=== PATIENT | male | born 1970 | race Caucasian/White ===

== ENCOUNTER 2017-11-27 16:21 | Emergency (ER) | payer OTHER, SELFPAY ==
[2017-11-27 16:46] VITALS: BP 146/102; PULSE 98; RESP 20; TEMP 37.2; O2SAT 96; BMI 45.6
--- NOTE | 2017-11-27 18:46 | ED.UPPEXIN ---
HPI - Extremity Injury (Upper) <NILO Escamilla - Last Filed: 11/27/17 21:20> General Chief Complaint: Extremity Injury, Upper Stated Complaint: WORK ACCIDENT/ABBRASION LT ELBOW SWELLING Time Seen by Provider: 11/27/17 18:35 Source: patient Mode of arrival: ambulatory Limitations: no limitations History of Present Illness HPI narrative: Patient presents after a ground level fall during work accident on to right elbow. Patient complains of some pain on movement of her right elbow, swelling at tip of right elbow and an abrasion on his right elbow. Patient also complains of lower back pain of though he states he has chronic lower back pain is not sure if the pack pain he is experiencing is his chronic issue or from the fall. Denies any numbness, tingling, weakness or incontinence. He does not want me to address his back pain, but states he ?wants it noted.? Related Data Home Medications Medication Instructions Recorded Confirmed lisinopril 20 mg PO QDAY #0 06/18/16 Previous Rx's Medication Instructions Recorded ondansetron HCl [Zofran] 4 mg PO Q4HP PRN 10 Days #0 tab 06/18/16 Allergies Allergy/AdvReac Type Severity Reaction Status Date / Time morphine Allergy Verified 11/27/17 16:46 Review of Systems <NILO Escamilla - Last Filed: 11/27/17 21:20> Review of Systems GENERAL: Denies chills, fatigue, malaise, fever, sweats. HEENT: Denies sinus pain, ear pain, sore throat, difficulty swallowing, dizziness. RESPIRATORY: Denies dyspnea, cough, wheezing, hemoptysis, sputum. CARDIOVASCULAR: Denies chest pain, palpitations, orthopnea, edema, GASTROINTESTINAL: Denies nausea, vomiting, abdominal pain, diarrhea, constipation, melena. : Denies dysuria, frequency, incontinence, hematuria, urinary retention. MUSCULOSKELETAL: See HPI SKIN: See HPI NEUROLOGIC: Denies weakness, headache, numbness, change in speech, confusion, seizures, incoordination. PSYCHIATRIC: No concerning psychosocial issues. 12 point review of systems is negative except for those stated above Constitutional Denies chills, Denies fever(s), Denies lethargy and Denies weakness Neurologic Denies weakness Exam <NILO Escamilla - Last Filed: 11/27/17 21:20> Narrative Exam Narrative: GENERAL: This is a well-nourished patient in no acute distress neck in the hallway. HEAD: Atraumatic. Normocephalic. No temporal or scalp tenderness. EYES: Pupils equal round and reactive. Extraocular motions intact. No scleral icterus. No injection or drainage. ENT: Nose without bleeding, purulent drainage or septal hematoma. Throat without erythema, tonsillar hypertrophy or exudate. Uvula midline. Airway patent. NECK: Trachea midline. No JVD or lymphadenopathy. Supple, nontender, no meningeal signs. CARDIOVASCULAR: Regular rate and rhythm without murmurs, gallops, or rubs. RESPIRATORY: Clear to auscultation. Breath sounds equal bilaterally. No wheezes, rales, or rhonchi. GASTROINTESTINAL: Abdomen soft, non-tender, nondistended. No hepato-splenomegaly, or palpable masses. No guarding. EXTREMITIES: Pain on palpation of her right elbow. Patient has full range of motion. Able to flex, extend pronate and supinate without problems. Positive radial pulse right hand. No pain to palpation right shoulder upper arm forearm or hand. No pain to palpation right snuffbox. BACK: Nontender without deformity or crepitance. No flank tenderness. No C-spine or spinal tenderness to palpation. Stable gait. NEURO: AOx3. SKIN: 2 cm abrasion noted at right elbow. No drainage or spreading redness. 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 An x-ray was taken given the mechanism of injury. Patient was given Tylenol for pain. His wound was dressed. Patient's worker's compensation form was filled out. I checked on the patient several times at his stay. Patient had no questions or concerns upon discharge. Orders Ordered: Discontinued Medications Acetaminophen (Tylenol) 975 mg PO NOW ONE Stop: 11/27/17 18:47 Last Admin: 11/27/17 19:24 Dose: 975 mg Vital Signs - 8 hr 11/27/17 16:46 11/27/17 19:15 11/27/17 19:37 Temperature 98.9 F Pulse Rate 98 H 68 Pulse Rate [Left Radial] 70 Respiratory Rate 20 21 Blood Pressure 146/102 H Blood Pressure [Left Arm] 142/95 H Pulse Oximetry 96 98 <Keith Roberts DO - Last Filed: 11/29/17 02:16> Orders Ordered: Discontinued Medications Acetaminophen (Tylenol) 975 mg PO NOW ONE Stop: 11/27/17 18:47 Last Admin: 11/27/17 19:24 Dose: 975 mg Vital Signs - 8 hr 11/27/17 16:46 11/27/17 19:15 11/27/17 19:37 Temperature 98.9 F Pulse Rate 98 H 68 Pulse Rate [Left Radial] 70 Respiratory Rate 20 21 Blood Pressure 146/102 H Blood Pressure [Left Arm] 142/95 H Pulse Oximetry 96 98 MDM - Extremity Injury (Upper) <NILO Escamilla - Last Filed: 11/27/17 21:20> Imaging Data right elbow xray: Radiologist's impression: View Report History [address] [address] XRay Report Signed Patient: Sanjay Soler MR#: [id number] : 1970 Acct:[id number] Age/Sex: 47 / M Date of Service: 11/27/17 Loc: ED Accession Number: [id number] Procedure: XR elbow RT min 3V Ordering Provider: Lenora Tolbert PROCEDURE: XR ELBOW RT MIN 3V INDICATIONS: pain, fall onto right elbow TECHNIQUE: 3 views of the elbow were acquired. COMPARISON: None. FINDINGS: Bones: No fractures or dislocations. No suspicious bony lesions. Soft tissues: No elbow joint effusion. No suspicious soft tissue calcifications. IMPRESSION: No acute fracture. No osseous lesion. If clinical suspicion and/or symptoms persist, further assessment with repeat plainfilms, or advanced imaging (e.g., CT, MRI, or bone scan) may be helpful for further assessment. Dictated by: Rachana Mobley M.D. on 11/27/2017 at 19:21 Approved by: Rachana Mobley M.D. on 11/27/2017 at 19:21 [facility] Narrative Medical decision making narrative: The patient's x-ray showed no acute fracture. He had good mobility and a low level of pain. History with Tylenol in the emergency department. His abrasion was dressed. Given the good range of motion, lack of significant pain and negative x-ray, he was cleared for work. I instructed him to watch for signs and symptoms of infection given his abrasion and follow up his primary care physician if worsening or no improvement. Patient no questions or concerns upon discharge. His worker's compensation forms were filled out. Discharge Plan Departure Patient Disposition: Home, Self-Care Clinical Impression: Abrasion of elbow, right, Pain and swelling of right elbow Discharge Date/Time: 11/27/17 19:55 Interventions: ED Discharge Assessment Last Done: 11/27/17 19:55 Instructions: How To Perform RICE (Rest, Ice, Compress, Elevate), DI for Abrasion, DI for Elbow Pain Activity Restrictions/Additional Instructions: Your x-ray showed no acute fracture. I suggest rest, ice, ibuprofen. Monitor ear abrasion for signs and symptoms of infection including pus, drainage, spreading redness. Follow up with primary care for new or worsening symptoms. Prescriptions: No Action lisinopril 20 MG tablet 20 mg PO QDAY Qty: 0 RF: 0 ondansetron HCl [Zofran] 4 MG tablet 4 mg PO Q4HP PRN10 Days Qty: 0 RF: 0 Referrals: Provider,Conversion [Non-Staff] - <Keith Roberts DO - Last Filed: 11/29/17 02:16> Cosign ED Attending Milagros Attestation: I was immediately available in the department for consultation. Documentation has been reviewed. I agree with assessment and plan.
[2017-11-27 19:15] VITALS: BP 142/95; PULSE 68; RESP 21; O2SAT 98
[2017-11-27] MEDS: ACETAMINOPHEN 325 MG TABLET 975 MG PO (19:24)
[2017-11-27 19:37] VITALS: PULSE 70
== END 2017-11-27 19:55 | disposition home or self-care (01) ==
PROVIDERS: Emergency Provider Nurse Practitioner Family
DX: S50.311A Abrasion of right elbow, initial encounter (principal); Y99.0 Civilian activity done for income or pay
CPT/HCPCS: 73080; 99283

== ENCOUNTER 2023-02-14 09:57 | Emergency (ER) | payer BC, SELFPAY ==
[2023-02-14 09:59] VITALS: BP 165/112; PULSE 78; RESP 16; TEMP 37.6; O2SAT 95; BMI 41.5
[2023-02-14 10:35] LABS: Strep Grp A by PCR Rapid NEGATIVE (Negative)
[2023-02-14 14:20] VITALS: BP 165/101; PULSE 81; O2SAT 99
--- NOTE | 2023-02-14 14:29 | ED.URI ---
HPI - URI/Sore Throat General Chief Complaint: Upper Respiratory Symptoms Stated Complaint: sore throat Time Seen by Provider: 02/14/23 14:13 Source: patient Mode of arrival: Ambulatory History of Present Illness HPI Narrative: 52-year-old male with history of hypertension, [id number] diabetes presents for sore throat, nasal congestion, swollen uvula. Patient has sleep apnea and the swollen uvula makes it difficult to sleep at night. Related Data Home Medications Medication Instructions Recorded Confirmed lisinopril 20 mg tablet 20 mg PO QDAY ##0 06/18/16 Previous Rx's Medication Instructions Recorded ondansetron HCl 4 mg tablet 4 mg PO Q4HP PRN 10 days #0 tabs 06/18/16 (Zofran) Allergies Allergy/AdvReac Type Severity Reaction Status Date / Time cyclobenzaprine Allergy Verified 02/14/23 09:59 [From Flexeril] morphine Allergy Verified 02/14/23 09:59 Review of Systems Review of Systems Narrative: CONSTITUTIONAL- Denies: fever, chills, fatigue HEENT-reports: Nasal congestion, sore throat Denies: nosebleed, vision changes RESPIRATORY- Denies: shortness of breath, cough, wheezing CARDIAC- Denies: chest pain, edema, orthopnea GI- Denies: abdominal pain, nausea, vomiting, constipation, diarrhea SKIN- Denies: rash, itching, burn, swelling NEUROLOGICAL- Denies: headache, numbness, weakness, dizziness Patient History Social History Smoking Status: Never smoker Smoking Status: Never smoker alcohol intake frequency: holidays/special occasions only Substance Use Type: does not use Exam Initial Vital Signs Initial Vital Signs: Vital Signs Temperature 99.6 F 02/14/23 09:59 Pulse Rate 78 02/14/23 09:59 Respiratory Rate 16 02/14/23 09:59 Blood Pressure 165/112 H 02/14/23 09:59 Pulse Oximetry 95 02/14/23 09:59 Oxygen Delivery Method Room Air 02/14/23 09:59 Const: Awake, alert, no acute distress, nontoxic appearing Eyes: PERRL, EOMI, conjunctiva normal ENT: Airway patent, mucous membranes moist, mild pharyngeal erythema, uvular edema, no tonsillar edema, no exudates Cardiac: regular rate, regular rhythm RESP: unlabored, clear bilaterally, no wheezing GI: Atraumatic, soft, nontender, nondistended, no rebound, no guarding MSK: Atraumatic, full range of motion, pulses equal Skin: Warm, Dry, intact, no rashes Neuro: AO x3, CN II-XII grossly intact, moves all extremities Psych: affect normal, mood normal, not suicidal, not homicidal Course Course Course Narrative: Sore throat with uvular swelling. Strep swab is negative. Patient's airway is intact. Given dose of steroids, counseled on the potential effects of steroids on glucose. Recommended Tylenol and Motrin as needed for pain as well as saltwater gargles. Orders Ordered: Discontinued Medications Dexamethasone (Dexamethasone 10 Mg/Ml Vial) 10 mg PO NOW ONE Stop: 02/14/23 14:31 Last Admin: 02/14/23 14:46 Dose: 10 mg Documented By: RB Dexamethasone (Dexamethasone 10 Mg/Ml Vial) 10 mg PO NOW ONE Stop: 02/14/23 14:41 Last Admin: 02/14/23 14:46 Dose: 10 mg Documented By: RB Lidocaine HCl (Lidocaine Viscous 2% 15 Ml Solution) 15 ml PO NOW ONE Stop: 02/14/23 14:31 Last Admin: 02/14/23 14:47 Dose: 15 ml Documented By: RB Vital Signs Vital signs: Vital Signs - 8 hr 02/14/23 09:59 02/14/23 14:20 Temperature 99.6 F Pulse Rate 78 81 Respiratory Rate 16 Blood Pressure 165/112 H 165/101 H Pulse Oximetry 95 99 Oxygen Delivery Method Room Air Room Air MDM - URI/Sore Throat Lab Data Labs: Lab Results 02/14/23 Range/Units 10:02 Group A Strep (PCR) Negative (Negative) Discharge Plan Departure Patient Disposition: Home Clinical Impression: Swollen uvula Instructions: DI for Pharyngitis/Tonsillopharyngitis -- Adult Prescriptions: No Action lisinopril 20 MG tablet 20 mg PO QDAY Qty: 0 ondansetron HCl [Zofran] 4 MG tablet 4 mg PO Q4HP PRN10 Days Qty: 0 0RF Referrals: Miscellaneous,Doctor, MD [Primary Care Provider] - Stand Alone Forms: Patient Portal/API
[2023-02-14] MEDS: DEXAMETHASONE 10 MG/ML VIAL PO ×2 (14:46)
[2023-02-14] MEDS: LIDOCAINE VISCOUS 2% 15 ML SOLUTION PO (14:47)
== END 2023-02-14 14:53 | disposition home or self-care (01) ==
PROVIDERS: Emergency Provider Emergency Medicine
DX: R22.1 Localized swelling, mass and lump, neck (principal)
CPT/HCPCS: 87651; 99283; J1100